=== PATIENT | male | born 1975 | race Two or more races ===

== ENCOUNTER 2019-11-09 13:09 | Emergency (ER) | payer SELFPAY ==
[~2019-11-09] VITALS: Ht 175.3 cm; Wt 114.3 kg
[2019-11-09 13:20] VITALS: Ht 175.3 cm; Wt 114.3 kg
[2019-11-09 15:24] VITALS: BP 146/95
== END 2019-11-09 15:24 | disposition home or self-care (01) ==
LOC: ED 13:09
DX: S61.211A Laceration without foreign body of left index finger without damage to nail, initial encounter (principal); I10 Essential (primary) hypertension; W26.0XXA Contact with knife, initial encounter; Y93.89 Activity, other specified; Y92.89 Other specified places as the place of occurrence of the external cause; Y99.8 Other external cause status
CPT/HCPCS: 90715; J2001